=== PATIENT | female | born 1950 | race Caucasian/White ===

== ENCOUNTER 2016-08-09 07:59 | Emergency (ER) | payer OTHER ==
[~2016-08-09] VITALS: Ht 162.6 cm; Wt 110.0 kg
[~2016-08-09 07:59] MED LIST: AMLODIPINE5 MG PO; AMOXICILLIN500 MG PO; AMOXICILLIN875 MG PO; ANKLE BRACE TOP; ASPIRIN EC81 MG PO; ATIVAN1 MG PO; BENZONATATE200 MG PO; BYSTOLIC5 MG PO; CALCIUM + D OR; CEPHALEXIN500 MG PO; CIPROFLOXACN500 MG PO; CLINDAMYCIN150 MG PO; CYANOCOBALAM1000 MCG; CYANOCOBALAM1000 MCG IJ; CYANOCOBALAM1000 MCG IM; DIOVAN HCT160 MG/25 PO; DOXYCYCL HYC100 MG PO; FERROUS SULFAT324 MG PO; FLONASE NASAL50 MCG; FLORASTOR250 M1 PO; KEFLEX500 MG PO; KETOROLAC60 MG/2 ML IM; LASIX 10 MG10 MG/TA1 PO; LEVAQUIN250 MG PO; LEVOTHYROXIN125 MC1 PO; LEVOTHYROXIN150 MCG PO; LEVOTHYROXIN175 MC1 PO; LEVOTHYROXINE100 MCG PO; LIPITOR10 MG PO; LORAZEPAM0.5 MG PO; MACROBID100 MG PO; MECLIZINE25 MG PO; MULTAQ400 MG OR; MULTAQ400 MG PO; NAPROSYN500 MG PO; NEXIUM40 M1 PO; NEXIUM40 MG PO; NITROFURANTN100 M2 PO; NITROFURANTN100 MG PO; NORVASC PO; NORVASC2.5 MG PO; POLYTRIM OU; POTASSIUM CHLO10 MEQ OR; PROPRANOLOL HC120 MG PO; PROPRANOLOL120 MG PO; PYRIDIUM200 MG PO; SYNTHROID150 MCG PO; SYNTHROID175 MCG PO; TAPAZOLE10 MG PO; TAPAZOLE5 MG PO; ULTRAM50 M1 PO; ULTRAM50 MG OR; ULTRAM50 MG PO; VENTOLIN HF1 IN; VITAMIN D400 UNI3 PO; XARELTO10 MG PO; XARELTO20 MG OR; XARELTO20 MG PO
[2016-08-09] MEDS ORDERED: DIOVAN HCT320 MG/25 PO (08:22)
[2016-08-09] MEDS ORDERED: XARELTO10 MG PO (08:24)
[2016-08-09] MEDS ORDERED: MULTAQ400 MG PO (08:25)
[2016-08-09] MEDS ORDERED: NAPROSYN500 MG PO (08:33)
[2016-08-09] MEDS ORDERED: BENADRYL25 M1 PO (08:33)
[2016-08-09 08:37] VITALS: BP 171/66
== END 2016-08-09 08:51 | disposition home or self-care (01) | DRG 607 ==
LOC: ED 07:59
DX: R22.0 Localized swelling, mass and lump, head (principal); I48.91 Unspecified atrial fibrillation; I10 Essential (primary) hypertension; E05.90 Thyrotoxicosis, unspecified without thyrotoxic crisis or storm; E78.5 Hyperlipidemia, unspecified; F41.9 Anxiety disorder, unspecified; E05.00 Thyrotoxicosis with diffuse goiter without thyrotoxic crisis or storm

== ENCOUNTER 2017-06-21 18:57 | Inpatient (IN) | payer MEDICARE, OTHER ==
[~2017-06-21] VITALS: Ht 162.6 cm; Wt 117.8 kg
[~2017-06-21 18:57] MED LIST changes: +BENADRYL25 M1 PO; +DIOVAN HCT320 MG/25 PO
[2017-06-21 19:34] LABS: HEMATOCRIT 37.9 % (37.0-47.0); HEMOGLOBIN 12.2 g/dl (12.0-16.0); IMMATURE GRANULOCYTES 0.6 % (0.0-1.0); MEAN CELL VOLUME 86.9 fL CALC (80.0-100.0); MEAN CORPUSCULAR HGB CONC 32.2 g/L CALC (32.0-36.0); NEUT# 5.7 thou/uL (2.00-7.15); RED BLOOD COUNT 4.36 mill/uL (4.20-5.60); RED CELL DISTRI WIDTH 14.1 % (11.5-15.5)
[2017-06-21 19:54] LABS: ALKALINE PHOSPHATASE 85 u/l (38-126); ANION GAP 16 (6-22 (CALC)); BILIRUBIN, TOTAL 0.7 mg/dL (0.0-1.4); BUN 14 mg/dL (8-23); BUN/CREATININE RATIO 18 (12-20 (CALC)); CARBON DIOXIDE 27 mmol/l (22-30); CHLORIDE 91 mmol/l (95-108); CREATININE 0.8 mg/dL (0.5-1.0); GFR > 60 ML/MIN (>=60 (CALC)); GFR FOR AFR.AMER. > 60 ML/MIN (>=60 (CALC)); POTASSIUM 4.4 mmol/l (3.5-5.1); SGOT/AST 16 u/l (9-36); SGPT/ALT 32 u/l (11-66); TOTAL PROTEIN 7.2 g/dL (6.3-8.2)
[2017-06-21 19:55] LABS: SODIUM 130 mmol/l (137-146)
[2017-06-21 20:43] LABS: URINE BILIRUBIN - DIPSTICK NEGATIVE (NEGATIVE); URINE BLOOD DIPSTICK MODERATE (NEGATIVE); URINE COLOR YELLOW; URINE GLUCOSE - DIPSTICK NEGATIVE (NEGATIVE); URINE KETONE NEGATIVE (NEGATIVE); URINE LEUK ESTERASE NEGATIVE (NEGATIVE); URINE NITRITE - DIPSTICK NEGATIVE (Negative); URINE PH 5.5 (4.5-8.0); URINE PROTEIN - DIPSTICK NEGATIVE (NEG-TRACE); URINE SPECIFIC GRAVITY >=1.030; URINE UROBILINOGEN - DIPSTICK 0.2 E.U./dL (0.2)
[2017-06-21 20:45] LABS: URINE CLARITY CLEAR
[2017-06-21 20:52] LABS: URINE SQUAMOUS EPITHELIAL CELL FEW EPI/hpf (0-FEW); URINE WBC 0-2 WBC/hpf (0-5)
[2017-06-21 22:55] VITALS: BP 110/82
[2017-06-22 05:08] VITALS: BP 127/54
[2017-06-22 08:05] VITALS: BP 138/56
[2017-06-22 10:36] LABS: BUN 11 mg/dL (8-23); BUN/CREATININE RATIO 16 (12-20 (CALC)); CARBON DIOXIDE 33 mmol/l (22-30); CHLORIDE 94 mmol/l (95-108); CREATININE 0.7 mg/dL (0.5-1.0); GFR > 60 ML/MIN (>=60 (CALC)); GFR FOR AFR.AMER. > 60 ML/MIN (>=60 (CALC)); MAGNESIUM 1.8 mg/dL (1.6-2.3)
[2017-06-22 10:41] LABS: ANION GAP 14 (6-22 (CALC)); POTASSIUM 3.4 mmol/l (3.5-5.1); SODIUM 138 mmol/l (137-146)
[2017-06-22 11:00] VITALS: BP 131/59
[2017-06-22 15:56] VITALS: BP 125/57
[2017-06-22 19:10] VITALS: BP 114/52
[2017-06-22 19:19] LABS: C. DIFFICILE TOXIN A&B NEGATIVE (NEGATIVE)
[2017-06-23] VITALS: BP 153/57
[2017-06-23 05:27] LABS: HEMATOCRIT 33.6 % (37.0-47.0); IMMATURE GRANULOCYTES 0.3 % (0.0-1.0); MEAN CELL VOLUME 86.8 fL CALC (80.0-100.0); MEAN CORPUSCULAR HGB 28.4 pG CALC (26.0-32.0); MEAN CORPUSCULAR HGB CONC 32.7 g/L CALC (32.0-36.0); NEUT# 3.89 thou/uL (2.00-7.15); RED BLOOD COUNT 3.87 mill/uL (4.20-5.60); RED CELL DISTRI WIDTH 14.2 % (11.5-15.5)
[2017-06-23 05:33] VITALS: BP 135/72
[2017-06-23 05:43] LABS: BUN 14 mg/dL (8-23); BUN/CREATININE RATIO 19 (12-20 (CALC)); CARBON DIOXIDE 29 mmol/l (22-30); CHLORIDE 94 mmol/l (95-108); CREATININE 0.7 mg/dL (0.5-1.0); GFR > 60 ML/MIN (>=60 (CALC)); GFR FOR AFR.AMER. > 60 ML/MIN (>=60 (CALC)); MAGNESIUM 1.9 mg/dL (1.6-2.3); SODIUM 134 mmol/l (137-146)
[2017-06-23 05:45] LABS: ANION GAP 15 (6-22 (CALC)); POTASSIUM 3.7 mmol/l (3.5-5.1)
[2017-06-23 07:38] VITALS: BP 140/58
[2017-06-23 09:17] LABS: CHOLESTEROL HDL RATIO 3.3 (<4.4 (CALC))
[2017-06-23 12:00] VITALS: BP 112/55
[2017-06-23] MEDS ORDERED: DOXYCYCL HYC100 MG PO (12:53)
[2017-06-23] MEDS ORDERED: ATIVAN1 M1 PO (15:08)
== END 2017-06-23 15:28 | disposition home or self-care (01) | DRG 202 ==
LOC: ED 18:57 → ED-I 21:30 → ED 21:49 → MS2 21:50
PROVIDERS: Nurse Practitioner Family; ADMIT Internal Medicine; ATTEND Internal Medicine
DX: J20.9 Acute bronchitis, unspecified (principal); J44.0 Chronic obstructive pulmonary disease with (acute) lower respiratory infection; I48.0 Paroxysmal atrial fibrillation; E66.01 Morbid (severe) obesity due to excess calories; I16.0 Hypertensive urgency; I11.9 Hypertensive heart disease without heart failure; E87.1 Hypo-osmolality and hyponatremia; Z68.41 Body mass index [BMI] 40.0-44.9, adult; E89.0 Postprocedural hypothyroidism; E78.5 Hyperlipidemia, unspecified; R09.02 Hypoxemia; R06.89 Other abnormalities of breathing; R19.7 Diarrhea, unspecified; F41.1 Generalized anxiety disorder; E87.6 Hypokalemia; I87.2 Venous insufficiency (chronic) (peripheral); M54.6 Pain in thoracic spine; F32.9 Major depressive disorder, single episode, unspecified; F45.0 Somatization disorder; Z79.01 Long term (current) use of anticoagulants; Z87.891 Personal history of nicotine dependence; Z88.8 Allergy status to other drugs, medicaments and biological substances
CPT/HCPCS: G0378; J2060

== ENCOUNTER → 2018-05-05 | Outpatient (REF) | payer MEDICARE, OTHER ==
[~2018-05-05] MED LIST changes: +ATIVAN1 M1 PO
[2018-05-05 09:28] LABS: HEMATOCRIT 36.6 % (37.0-47.0); HEMOGLOBIN 11.4 g/dl (12.0-16.0); IMMATURE GRANULOCYTES 0.3 % (0.0-5.0); MEAN CELL VOLUME 88.4 fL CALC (80.0-100.0); MEAN CORPUSCULAR HGB 27.5 pG CALC (26.0-32.0); MEAN CORPUSCULAR HGB CONC 31.1 g/L CALC (32.0-36.0); NEUT# 4.8 thou/uL (2.00-7.15); RED BLOOD COUNT 4.14 mill/uL (4.20-5.60); RED CELL DISTRI WIDTH 14.2 % (11.5-15.5)
[2018-05-05 09:53] LABS: ANION GAP 12 (6-22 (CALC)); BUN 12 mg/dL (8-23); BUN/CREATININE RATIO 16 (12-20 (CALC)); CALCULATED LDLCHOLESTEROL 77 mg/dL (62-129 (CALC)); CARBON DIOXIDE 31 mmol/l (22-30); CHLORIDE 98 mmol/l (95-108); CHOLESTEROL HDL RATIO 2.9 (<4.4 (CALC)); CREATININE 0.8 mg/dL (0.5-1.0); GFR > 60 ML/MIN (>=60 (CALC)); GFR FOR AFR.AMER. > 60 ML/MIN (>=60 (CALC)); HDL CHOLESTEROL 53 mg/dL (>=40); POTASSIUM 4.1 mmol/l (3.5-5.1); SODIUM 137 mmol/l (137-146); TOTAL CHOLESTEROL 157 mg/dl (0-199); TOTAL TRIGLYCERIDES 131 mg/dl (30-149); VLDL CHOLESTROL 26 mg/dl (1-41 (CALC))
[2018-05-05 10:23] LABS: TSH, 3RD GENERATION 2.32 uIU/mL (0.47 - 4.68)
== END | disposition home or self-care (01) ==
LOC: LAB 08:31
PROVIDERS: ATTEND Internal Medicine
DX: E03.9 Hypothyroidism, unspecified (principal); E11.65 Type 2 diabetes mellitus with hyperglycemia; E55.9 Vitamin D deficiency, unspecified; E78.49 Other hyperlipidemia; I10 Essential (primary) hypertension; E89.0 Postprocedural hypothyroidism

== ENCOUNTER 2019-07-27 12:40 | Observation (INO) | payer MEDICARE, OTHER ==
[~2019-07-27] VITALS: Ht 162.6 cm; Wt 123.0 kg
--- NOTE | 2019-07-27 13:02 | NUR ---
PT TO ROOM VIA JAKEHAIR.
[2019-07-27] MEDS ORDERED: LEVOTHYROXIN125 MCG PO (13:23)
[2019-07-27] MEDS ORDERED: LEVOTHYROXIN150 MCG PO (13:24)
[2019-07-27] MEDS ORDERED: MULTAQ400 MG PO (13:26)
--- NOTE | 2019-07-27 14:00 | NUR ---
LAB AT BEDSIDE FOR BLOOD COLLECTION. AWARE OF NO IV SITE.
[2019-07-27 14:13] LABS: HEMATOCRIT 26.7 % (37.0-47.0); HEMOGLOBIN 7.5 g/dl (12.0-16.0); IMMATURE GRANULOCYTES 0.5 % (0.0-5.0); MEAN CELL VOLUME 76.9 fL CALC (80.0-100.0); MEAN CORPUSCULAR HGB 21.6 pG CALC (26.0-32.0); MEAN CORPUSCULAR HGB CONC 28.1 g/dL CAL (32.0-36.0); NEUT# 6.78 thou/uL (2.00-7.15); RED BLOOD COUNT 3.47 mill/uL (4.20-5.60); RED CELL DISTRI WIDTH 16.3 % (11.5-15.5)
[2019-07-27 14:31] LABS: ALKALINE PHOSPHATASE 87 u/l (38-126); ANION GAP 13 (6-22 (CALC)); BILIRUBIN, TOTAL 0.6 mg/dL (0.0-1.4); BUN 15 mg/dL (8-23); BUN/CREATININE RATIO 19 (12-20 (CALC)); CARBON DIOXIDE 28 mmol/l (22-30); CHLORIDE 98 mmol/l (95-108); CREATININE 0.8 mg/dL (0.5-1.0); GFR > 60 ML/MIN (>=60 (CALC)); GFR FOR AFR.AMER. > 60 ML/MIN (>=60 (CALC)); POTASSIUM 3.7 mmol/l (3.5-5.1); SGOT/AST 22 u/l (9-36); SODIUM 135 mmol/l (137-146); TOTAL PROTEIN 6.9 g/dL (6.3-8.2)
--- NOTE | 2019-07-27 15:00 | NUR ---
PATIENT RESTING COMFORTABLY IN STRETCHER IN NAD AND WAS UPDATEDON PLAN OF CARE AND WAIT TIME. MD AT BEDSIDE. ASSISTED WITH RECTAL EXAM, FECAL OCCULT NEGATIVE.
[2019-07-27 15:14] LABS: URINE BILIRUBIN - DIPSTICK NEGATIVE (NEGATIVE); URINE BLOOD DIPSTICK NEGATIVE (NEGATIVE); URINE COLOR YELLOW; URINE GLUCOSE - DIPSTICK NEGATIVE (NEGATIVE); URINE KETONE NEGATIVE (NEGATIVE); URINE LEUK ESTERASE NEGATIVE (NEGATIVE); URINE NITRITE - DIPSTICK NEGATIVE (Negative); URINE PH 5.5 (4.5-8.0); URINE PROTEIN - DIPSTICK NEGATIVE (NEG-TRACE); URINE SPECIFIC GRAVITY 1.025; URINE UROBILINOGEN - DIPSTICK 0.2 E.U./dL (0.2)
--- NOTE | 2019-07-27 16:00 | NUR ---
PATIENT RESTING IN STRETCHER IN NAD. VSS. PT AND DAUGHTER UPDATED ON PLAN OF CARE AND WAIT TIME.
--- NOTE | 2019-07-27 16:50 | NUR ---
UNABLE TO ESTABLISH IV, MD NOTIFIED. WILL BE STARTING CENTRAL LINE. DAUGHTER AND PATIENT UPDATED ON PLAN OF CARE AND WAIT TIME.
--- NOTE | 2019-07-27 17:16 | NUR ---
ASSUMED CARE OF PT.
--- NOTE | 2019-07-27 17:16 | NUR ---
PT MOVED FROM ROOM 5 TO ROOM 13 VIA WC FOR CLOSER MONITORING
--- NOTE | 2019-07-27 18:01 | NUR ---
IN ROOM TO START CENTRAL LINE
--- NOTE | 2019-07-27 18:50 | NUR ---
UNABLE TO OBTAIN ACCESS; PT AND FAMILY NOTFIED OF POC AND CONTINUED WAIT TIME; WILL CONTINUE TO MONITOR
--- NOTE | 2019-07-27 19:20 | NUR ---
ITRODUCED SELF TO PATIENT. ATTEMPTED TO UPDATED PATIENT ON SURGICAL CONSULT FOR IV ACCESS. PATIENT EXTREMEMLY UPSET AND FRUSTRATED WITH ALL THE UNSUCCESSFUL IV ATTEMPTS. PATIENT AGREES TO ALLOW ME TO LOOK FOR AN ACCESS.
--- NOTE | 2019-07-27 19:40 | NUR ---
IV ESTABLISHED AFTER ONE ATTEMPT, PATIENT TOLERATED WELL. AND GRATEFUL. CALL PLACED TO DR AMADOR TO UPDATE HIM THAT PATIENT HAD AN IV AND HE STATES HE WILL STILL BE IN TO SEE HER.
--- NOTE | 2019-07-27 20:17 | NUR ---
DR. GUY AT BEDSIDE DISCUSSING PLAN OF CARE
--- NOTE | 2019-07-27 20:35 | NUR ---
DR. MARQUES AT BEDSIDE ABOUT TO START CENTRAL LINE
--- NOTE | 2019-07-27 21:00 | NUR ---
CENTRAL LINE SUCCESSFUL IN RIJ, PATENT, PT DENIES PAIN, NO BLEEDING NOTED AT SITE. XRAY FOR CONFIRMATION DONE.
--- NOTE | 2019-07-27 21:10 | NUR ---
GAVE REPORT TO ELIA WYATT
--- NOTE | 2019-07-27 21:15 | NUR ---
TRANSPORTED PT TO [facility] STABLE AND IN NO DISTRESS. CARE ASSUMED TO DAWN Admission Note Report Given to: Transported by: Wheelchair X Stretcher Transported with: X Nurse Transporter X Patent IV X O2 X Kindergarten Teacher Assistant Location: ICU X MS2
[2019-07-27 21:20] VITALS: BP 150/54
[2019-07-27 22:45] VITALS: BP 133/67
[2019-07-27 23:13] VITALS: BP 132/66
[2019-07-28] VITALS (7 sets, daily range): BP systolic 131–154; BP diastolic 51–72
--- NOTE | 2019-07-28 07:44 | NUR ---
PT SITTING ON THE SIDE OF THE BED. A&O X3. NO DISTRESS NOTED. PT EXHIBITING SLIGHT ANXIETY, VERBAL DISCUSSION/CUES GIVEN TO PT. PT VOICES TO BE NEEDING AN ENDOSCOPY AND COLONOSCOPY THAT WAS SUGGESTED BY THE ED. EXPLAINED TO PT THAT MD WOULD BE NOTIFIED AND IF CONSULT WAS NEEDED IT WOULD BE PLACED. PT VERBALIZED UNDERSTANDING. O2 @ 1L IN PLACE. PT REPORTS EXCERTIONAL SOB. DENIES CONTINOUS USE OF O2 @ HOME. ASSESSMENT COMPLETED. DISCUSSED POC. CALL LIGHT IN REACH. CONTINUE TO MONITOR.
[2019-07-28 07:52] LABS: HEMATOCRIT 25.9 % (37.0-47.0); HEMOGLOBIN 7.4 g/dl (12.0-16.0); MEAN CELL VOLUME 76.4 fL CALC (80.0-100.0); MEAN CORPUSCULAR HGB 21.8 pG CALC (26.0-32.0); MEAN CORPUSCULAR HGB CONC 28.6 g/dL CAL (32.0-36.0); RED BLOOD COUNT 3.39 mill/uL (4.20-5.60); RED CELL DISTRI WIDTH 16.5 % (11.5-15.5)
--- NOTE | 2019-07-28 14:07 | NUR ---
PT GIVEN COLONOSCOPY PREP. INSTRUCTIONS ON PREP GIVEN TO PT AND DAUGHTER. BOTH VERBALIZED UNDERSTANDING
--- NOTE | 2019-07-28 18:12 | NUR ---
OR CONSENT OBTAINED
--- NOTE | 2019-07-28 19:01 | NUR ---
REPORT FROM KRISS YATES. PT RESTING IN BED. NO APPARENT DISTRESS NOTED. PT DENIES ANY PAIN OR DISCOMFORT AT THIS TIME. SHIFT MGR IN PLACE. BSC AT BEDSIDE. PT FINISHING BOWEL PREP. DISCUSSED POC AND NPO AFTER MIDNIGHT. PT VERBALIZED UNDERSTANDING. CALL LIGHT WITHIN REACH. WILL CONTINUE TO MONITOR.
--- NOTE | 2019-07-28 20:09 | NUR ---
07/28/19 at 0447 Late entry C/O mild pain/aching and not being able to sleep, medicated with 2 Tylenol as per order on APR, no other discomforts noted at this time. Moving around well in bed and to BSC without assistance, tolerated 1 unit of PRBC's well to right IJ 3 lumen, blood and IV fluids infused to blue port, brown and white port flushes well and have very good bld return, dressing secure to neck. Resp unlabored lungs remain clear but diminished bilaterally.
--- NOTE | 2019-07-28 20:15 | NUR ---
07/28/19 at 0700 late entry Report to oncoming nurse, questions answered, left in care of nurse in stable condition, tele intact.
--- NOTE | 2019-07-28 20:19 | NUR ---
07/27/19 at 2350 Late entry Blood infusing well, VS WNL during blood transfusion so far, 1unit PBBC infusing well at 125cc/hr to blue port of right IJ, site without redness or edema, brown and white ports flush well and have very good blood returns, denies discomforts or needs at this time, resp unlabored, status unchanged, O2 intact at 2L per nasal canula
--- NOTE | 2019-07-28 22:29 | NUR ---
SLEEPING PILL ADMINISTERED UPON REQUEST. BOWEL PREP COMPLETE. PT STILL HAVING SEVERAL WATERY BMS, CLEAR AND YELLOW IN COLOR. NO APPARENT DISTRESS NOTED. BARRIER CREAM AND GLOVE PROVIDED FOR PT TO USE NEEDED. CALL LIGHT WITHIN REACH. WILL CONTINUE TO MONITOR.
[2019-07-29 00:10] VITALS: BP 155/80
--- NOTE | 2019-07-29 02:33 | NUR ---
PT RESTING IN BED. NO APPARENT DISTRESS NOTED. IV FLUIDS INFUSING TO RIGHT IJ TRIPLE LUMEN, SITE CDI. CALL LIGHT WITHIN REACH. WILL CONTINUE TO MONITOR.
[2019-07-29 04:10] VITALS: BP 149/75
--- NOTE | 2019-07-29 04:38 | NUR ---
PT ANXIOUS C/O LEFT LEG PAIN. PT STATES LEG STARTED HURTING AFTER BP WAS OBTAINED FROM LEFT ARM. NO APPARENT SWELLING OR REDNESS NOTED TO LEG. PT CONCERNED ABOUT XARLTO ON HOLD AND LEG PAIN COULD BE RELATED, AND COULD POSSIBLY HAVE A BLOOD CLOT. PT STATES PAIN STARTED IN FOOT EARLIER IN THE NIGHT AND IS NOW AT THIGH. CALM REASSURANCE OFFERED. RN ON SHIFT IN ROOM TO ASSESS WELL. PT MEDICATED FOR PAIN AND ANXIETY AT THIS TIME. WILL CONTINUE TO MONITOR.
[2019-07-29 04:42] LABS: HEMATOCRIT 26.7 % (37.0-47.0); HEMOGLOBIN 7.6 g/dl (12.0-16.0); MEAN CELL VOLUME 76.7 fL CALC (80.0-100.0); MEAN CORPUSCULAR HGB 21.8 pG CALC (26.0-32.0); MEAN CORPUSCULAR HGB CONC 28.5 g/dL CAL (32.0-36.0); RED BLOOD COUNT 3.48 mill/uL (4.20-5.60); RED CELL DISTRI WIDTH 16.6 % (11.5-15.5)
[2019-07-29 04:58] LABS: ALBUMIN 3.5 g/dL (3.2-5.0); ALKALINE PHOSPHATASE 86 u/l (38-126); ANION GAP 9 (6-22 (CALC)); BILIRUBIN, TOTAL 0.8 mg/dL (0.0-1.4); BUN 9 mg/dL (8-23); BUN/CREATININE RATIO 13 (12-20 (CALC)); CARBON DIOXIDE 28 mmol/l (22-30); CHLORIDE 101 mmol/l (95-108); CREATININE 0.7 mg/dL (0.5-1.0); GFR > 60 ML/MIN (>=60 (CALC)); GFR FOR AFR.AMER. > 60 ML/MIN (>=60 (CALC)); POTASSIUM 3.9 mmol/l (3.5-5.1); SGOT/AST 22 u/l (9-36); SODIUM 134 mmol/l (137-146); TOTAL PROTEIN 6.2 g/dL (6.3-8.2)
[2019-07-29 07:41] VITALS: BP 139/55
--- NOTE | 2019-07-29 07:41 | NUR ---
PT SLEEPING IN BED. AWAKENED TO COMPLETE ASSESSMENT. A&O. PT REPORTS LT LEG PAIN THAT IS STILL ONGOING. PT SLIGHTLY ANXIOUS, VERBAL CUES/DISCUSSION CALMED PT. ASSESSMENT COMPLETED. DISCUSSED POC. CALL LIGHT IN REACH. CONTINUE TO MONITOR.
--- NOTE | 2019-07-29 08:20 | NUR ---
PT TAKEN VIA STRETCHER TO OR ACCOMPANIED BY KARRIE GORDON. O2 VIA NC IN PLACE.
--- NOTE | 2019-07-29 08:30 | NUR ---
IV IRON GIVEN TO PACU TO TRANSFUSE FOR PT AT 9 AM
--- NOTE | 2019-07-29 10:02 | NUR ---
PT ARRIVED FROM OR ACCOMPANIED BY KARRIE GORDON. PT A&O X3. SLOW BUT STEADY GAIT OBSERVED. O2 VIA NC @3L IN PLACE. PER PERRY, ADVANCE DIET TO CARDIAC. US OF LOWER EXTREMITY ORDERED BY PERRY DUE TO CONSTANT LEG PAIN, PER PT IT IS NOT NEW ONSET SHE HAS BEEN HAVING PAIN FOR A COUPLE DAYS. PT STABALIZED IN ROOM. IV 0.9 NS INFUSING AT 100 ML/HR. CALL LIGHT IN REACH. CONTINUE TO MONITOR.
[2019-07-29 10:13] VITALS: BP 146/76
--- NOTE | 2019-07-29 12:50 | NUR ---
PT TAKEN TO RADIOLOGY ACCOMPANIED BY KARRIE FOR US OF LOWER LT EXT
--- NOTE | 2019-07-29 16:20 | NUR ---
D/C INSTRUCTIONS GIVEN TO BOTH PT AND DAUGHTER, BOTH VERBALIZED UNDERSTANDING
--- NOTE | 2019-07-29 16:30 | NUR ---
CENTRAL LINE REMOVED BY KOMAL KOU RN. INTACT UPON REMOVAL
--- NOTE | 2019-07-29 16:50 | NUR ---
Discharge instructions given. Patient verbalizes understanding of same. Discharged in stable condition via Wheelchair to Home with family accompanied by staff. All belongings sent with pt.
== END 2019-07-29 16:50 | disposition home or self-care (01) ==
LOC: ED 12:40 → ED-I 16:36 → ED 16:57 → MS2 16:58 → ED-I 16:58 → MS2 17:43
PROVIDERS: Family Medicine; Nurse Practitioner Family; ADMIT Internal Medicine; ATTEND Internal Medicine
PROC: 30243N1 Transfusion of Nonautologous Red Blood Cells into Central Vein, Percutaneous Approach (ICD-10-PCS; principal; 2019-07-27)
PROC: 05HM33Z Insertion of Infusion Device into Right Internal Jugular Vein, Percutaneous Approach (ICD-10-PCS; 2019-07-27)
PROC: 0DJ08ZZ Inspection of Upper Intestinal Tract, Via Natural or Artificial Opening Endoscopic (ICD-10-PCS; 2019-07-29)
PROC: 0DJD8ZZ Inspection of Lower Intestinal Tract, Via Natural or Artificial Opening Endoscopic (ICD-10-PCS; 2019-07-29)
DX: D50.9 Iron deficiency anemia, unspecified (principal); I10 Essential (primary) hypertension; I48.0 Paroxysmal atrial fibrillation; E89.0 Postprocedural hypothyroidism; E78.5 Hyperlipidemia, unspecified; F41.1 Generalized anxiety disorder; M79.605 Pain in left leg; Z87.891 Personal history of nicotine dependence; Z11.59 Encounter for screening for other viral diseases; Z79.01 Long term (current) use of anticoagulants
CPT/HCPCS: J1756; J2060; P9016

== ENCOUNTER 2021-06-20 15:21 | Emergency (ER) | payer MEDICARE, OTHER ==
[~2021-06-20] VITALS: Ht 162.6 cm; Wt 120.0 kg
[~2021-06-20 15:21] MED LIST changes: +LEVOTHYROXIN125 MCG PO
[2021-06-20 15:59] VITALS: BP 158/73
[2021-06-20 16:30] LABS: HEMATOCRIT 39.2 % (37.0-47.0); HEMOGLOBIN 12.4 g/dl (12.0-16.0); IMMATURE GRANULOCYTES 0.3 % (0.0-5.0); MEAN CELL VOLUME 88.1 fL CALC (80.0-100.0); MEAN CORPUSCULAR HGB 27.9 pG CALC (26.0-32.0); MEAN CORPUSCULAR HGB CONC 31.6 g/dL CAL (32.0-36.0); NEUT# 4.27 thou/uL (2.00-7.15); RED BLOOD COUNT 4.45 mill/uL (4.20-5.60); RED CELL DISTRI WIDTH 14.6 % (11.5-15.5)
[2021-06-20 16:31] VITALS: BP 113/55
[2021-06-20 16:51] LABS: ALBUMIN 3.8 g/dL (3.2-5.0); ALKALINE PHOSPHATASE 85 u/l (38-126); ANION GAP 10 (6-22 (CALC)); BILIRUBIN, TOTAL 0.9 mg/dL (0.0-1.4); BUN 16 mg/dL (8-23); BUN/CREATININE RATIO 19 (12-20 (CALC)); CARBON DIOXIDE 30 mmol/l (22-30); CHLORIDE 96 mmol/l (95-108); CREATININE 0.9 mg/dL (0.5-1.0); GFR > 60 ML/MIN (>=60 (CALC)); GFR FOR AFR.AMER. > 60 ML/MIN (>=60 (CALC)); LIPASE 49 u/l (23-300); POTASSIUM 3.8 mmol/l (3.5-5.1); SGOT/AST 25 u/l (9-36); SODIUM 132 mmol/l (137-146); TOTAL PROTEIN 6.7 g/dL (6.3-8.2)
[2021-06-20 17:01] VITALS: BP 151/48
[2021-06-20 17:12] LABS: URINE BILIRUBIN - DIPSTICK NEGATIVE (NEGATIVE); URINE BLOOD DIPSTICK SMALL (NEGATIVE); URINE COLOR YELLOW; URINE GLUCOSE - DIPSTICK NEGATIVE (NEGATIVE); URINE KETONE NEGATIVE (NEGATIVE); URINE LEUK ESTERASE NEGATIVE (NEGATIVE); URINE PH 5.5 (4.5-8.0); URINE PROTEIN - DIPSTICK NEGATIVE (NEG-TRACE); URINE UROBILINOGEN - DIPSTICK 0.2 E.U./dL (0.2)
[2021-06-20 17:24] LABS: URINE NITRITE - DIPSTICK NEGATIVE (Negative); URINE RBC 0-2 RBC/hpf (0-5)
[2021-06-20 17:30] VITALS: BP 140/60
[2021-06-20] MEDS ORDERED: IBUPROFEN600 MG PO ×2 (17:56→18:44)
[2021-06-20] MEDS ORDERED: KEFLEX500 MG PO ×2 (17:56→18:44)
== END 2021-06-20 18:56 | disposition home or self-care (01) ==
LOC: ED 15:21
DX: R10.9 Unspecified abdominal pain (principal); R31.9 Hematuria, unspecified; I10 Essential (primary) hypertension; F41.9 Anxiety disorder, unspecified; E66.01 Morbid (severe) obesity due to excess calories

== ENCOUNTER 2022-10-31 21:16 | Emergency (ER) | payer MEDICARE, OTHER ==
[2022-10-31] VITALS (12 sets, daily range): BP systolic 129–200; BP diastolic 61–138
[~2022-10-31] VITALS: Ht 160 cm; Wt 104.0 kg
[~2022-10-31 21:16] MED LIST changes: +IBUPROFEN600 MG PO
[2022-10-31] MEDS ORDERED: DIOVAN320 MG PO (22:17)
[2022-10-31] MEDS ORDERED: HYDROCHLOROT25 MG PO (22:18)
[2022-10-31 22:22] LABS: BASO% 0.3 % (0-3); EOS% 1.5 % (0-8); HEMATOCRIT 38.1 % (37.0-47.0); HEMOGLOBIN 12.4 g/dl (12.0-16.0); IMMATURE GRANULOCYTES 0.2 % (0.0-5.0); LYMPH% 27.7 % (15-41); MEAN CELL VOLUME 88.2 fL CALC (80.0-100.0); MEAN CORPUSCULAR HGB 28.7 pG CALC (26.0-32.0); MEAN CORPUSCULAR HGB CONC 32.5 g/dL CAL (32.0-36.0); MONO% 8.8 % (2-13); NEUT# 5.55 thou/uL (2.00-7.15); NEUT% 61.5 % (42-76); RED BLOOD COUNT 4.32 mill/uL (4.20-5.60); RED CELL DISTRI WIDTH 14.2 % (11.5-15.5)
[2022-10-31 22:39] LABS: ALBUMIN 3.9 g/dL (3.2-5.0); ALKALINE PHOSPHATASE 78 u/l (38-126); ANION GAP 10 (6-22 (CALC)); BILIRUBIN, TOTAL 0.7 mg/dL (0.02-1.3); BUN 16 mg/dL (8-23); BUN/CREATININE RATIO 20 (12-20 (CALC)); CARBON DIOXIDE 31 mmol/l (22-30); CHLORIDE 91 mmol/l (95-108); CREATININE 0.8 mg/dL (0.5-1.0); GFR FOR AFR.AMER. > 60 ML/MIN (>=60 (CALC)); GFR OTHER RACES > 60 ML/MIN (>=60 (CALC)); POTASSIUM 3.7 mmol/l (3.5-5.1); SGOT/AST 27 u/l (9-36); SODIUM 128 mmol/l (137-146); TOTAL PROTEIN 6.7 g/dL (6.3-8.2)
[2022-11-01 00:01] VITALS: BP 148/69
[2022-11-01 00:16] VITALS: BP 137/65
[2022-11-01 00:31] VITALS: BP 136/61
[2022-11-01 00:45] VITALS: BP 136/61
== END 2022-11-01 00:45 | disposition home or self-care (01) ==
LOC: ED 21:16
PROVIDERS: Emergency Medicine
DX: I10 Essential (primary) hypertension (principal); E87.1 Hypo-osmolality and hyponatremia; I48.0 Paroxysmal atrial fibrillation; E66.01 Morbid (severe) obesity due to excess calories; F41.9 Anxiety disorder, unspecified; Z86.718 Personal history of other venous thrombosis and embolism

== ENCOUNTER 2023-11-14 01:15 | Emergency (ER) | payer MEDICARE, OTHER ==
[~2023-11-14] VITALS: Ht 160 cm; Wt 108.0 kg
[~2023-11-14 01:15] MED LIST changes: +DIOVAN320 MG PO; +HYDROCHLOROT25 MG PO; +NEURONTIN300 MG PO
[2023-11-14 02:32] LABS: BASO% 0.4 % (0-3); HEMATOCRIT 38.6 % (37.0-47.0); HEMOGLOBIN 11.8 g/dl (12.0-16.0); IMMATURE GRANULOCYTES 0.1 % (0.0-5.0); MEAN CELL VOLUME 89.4 fL CALC (80.0-100.0); MEAN CORPUSCULAR HGB 27.3 pG CALC (26.0-32.0); MEAN CORPUSCULAR HGB CONC 30.6 g/dL CAL (32.0-36.0); MONO% 6.7 % (2-13); NEUT# 5.82 thou/uL (2.00-7.15); NEUT% 68.8 % (42-76); RED BLOOD COUNT 4.32 mill/uL (4.20-5.60)
[2023-11-14 02:43] LABS: ALBUMIN 4.1 g/dL (3.2-5.0); BILIRUBIN, TOTAL 0.7 mg/dL (0.02-1.3); CREATININE 0.7 mg/dL (0.5-1.0); POTASSIUM 3.8 mmol/l (3.5-5.1); TOTAL PROTEIN 7.1 g/dL (6.3-8.2)
[2023-11-14 02:44] LABS: URINE BILIRUBIN - DIPSTICK Negative (NEGATIVE); URINE BLOOD DIPSTICK Small (NEGATIVE); URINE CLARITY Clear; URINE GLUCOSE - DIPSTICK Negative (NEGATIVE); URINE KETONE Negative (NEGATIVE); URINE NITRITE - DIPSTICK Negative (Negative); URINE PH 5.5 (4.5-8.0); URINE PROTEIN - DIPSTICK Negative (NEG-TRACE); URINE UROBILINOGEN - DIPSTICK 0.2 E.U./dL (0.2)
[2023-11-14 02:52] LABS: URINE COLOR Yellow
[2023-11-14 02:53] LABS: URINE EPITHELIAL CELLS FEW EPI/hpf (0-FEW); URINE LEUK ESTERASE Negative (Negative)
[2023-11-14 02:54] LABS: URINE BACTERIA FEW hpf
[2023-11-14] MEDS ORDERED: MECLIZINE HCL 25 MG/TAB PO ONE (03:40)
[2023-11-14] MEDS ORDERED: MEDI-MECLIZINE25 MG PO (03:57)
[2023-11-14 04:02] VITALS: BP 162/79
== END 2023-11-14 04:02 | disposition home or self-care (01) ==
LOC: ED 01:15
PROVIDERS: Emergency Medicine
DX: F41.1 Generalized anxiety disorder (principal); E89.0 Postprocedural hypothyroidism; R53.1 Weakness; I10 Essential (primary) hypertension; I48.0 Paroxysmal atrial fibrillation; E78.5 Hyperlipidemia, unspecified; E66.01 Morbid (severe) obesity due to excess calories; Z79.01 Long term (current) use of anticoagulants; Z88.1 Allergy status to other antibiotic agents; Z88.5 Allergy status to narcotic agent; Z88.2 Allergy status to sulfonamides; Z86.718 Personal history of other venous thrombosis and embolism; Z20.822 Contact with and (suspected) exposure to COVID-19